=== PATIENT | male | born 1990 | race Caucasian/White ===

== ENCOUNTER 2017-03-26 18:14 | Emergency (ER) | payer OTHER ==
[~2017-03-26] VITALS: Ht 182.8 cm; Wt 68.0 kg
[~2017-03-26 18:14] MED LIST: AMOXICILLIN500 MG PO; CATAFLAM50 MG PO; CEPHALEXIN500 M1 PO; NAPROSYN500 MG PO; NKHM; SEROQUEL25 MG PO; SEROQUEL50 MG PO; ULTRAM50 MG PO; VALTREX500 MG PO; ZOLOFT25 MG PO; Zofran4 MG PO
[2017-03-26 18:18] VITALS: BP 135/93
[2017-03-26] MEDS ORDERED: CYCLOBENZAPRINE10 MG PO (20:47)
[2017-03-26] MEDS ORDERED: NAPROSYN500 MG PO (20:47)
== END 2017-03-26 20:52 | disposition home or self-care (01) ==
LOC: ED 18:14
DX: S39.012A Strain of muscle, fascia and tendon of lower back, initial encounter (principal); X58.XXXA Exposure to other specified factors, initial encounter; Y93.89 Activity, other specified; Y92.89 Other specified places as the place of occurrence of the external cause; Y99.9 Unspecified external cause status

== ENCOUNTER 2017-06-06 13:43 | Emergency (ER) | payer SELFPAY ==
[~2017-06-06] VITALS: Ht 180.3 cm; Wt 70.3 kg
[~2017-06-06 13:43] MED LIST changes: +CYCLOBENZAPRINE10 MG PO
[2017-06-06 13:49] VITALS: BP 117/73
[2017-06-06] MEDS ORDERED: Zofran4 MG PO (14:34)
== END 2017-06-06 14:43 | disposition home or self-care (01) ==
LOC: ED 13:43
DX: K52.9 Noninfective gastroenteritis and colitis, unspecified (principal); F17.200 Nicotine dependence, unspecified, uncomplicated

== ENCOUNTER 2019-04-20 09:27 | Emergency (ER) | payer SELFPAY ==
[~2019-04-20] VITALS: Ht 180.3 cm; Wt 72.6 kg
[2019-04-20 09:33] VITALS: BP 153/86
[2019-04-20] MEDS ORDERED: TESSALON PERLE100 M1 PO (11:37)
[2019-04-20] MEDS ORDERED: FLONASE ALLERG9.9 ML NAS (11:37)
[2019-04-20] MEDS ORDERED: AUGMENTIN 875875 MG PO (11:37)
== END 2019-04-20 11:39 | disposition home or self-care (01) ==
LOC: ED 09:27
DX: J32.9 Chronic sinusitis, unspecified (principal); J02.9 Acute pharyngitis, unspecified

== ENCOUNTER 2022-11-29 11:02 | Emergency (ER) | payer OTHER ==
[~2022-11-29] VITALS: Wt 74.8 kg
[~2022-11-29 11:02] MED LIST changes: +AUGMENTIN 875875 MG PO; +FLONASE ALLERG9.9 ML NAS; +TESSALON PERLE100 M1 PO
[2022-11-29 11:13] VITALS: BP 142/76
== END 2022-11-29 12:48 | disposition home or self-care (01) ==
LOC: ED 11:02
DX: M54.9 Dorsalgia, unspecified (principal); G89.29 Other chronic pain; J45.909 Unspecified asthma, uncomplicated; Z98.890 Other specified postprocedural states

== ENCOUNTER 2023-05-30 10:50 | Emergency (ER) | payer SELFPAY ==
[~2023-05-30] VITALS: Ht 180.3 cm; Wt 72.6 kg
[2023-05-30 10:55] VITALS: BP 153/71
[2023-05-30] MEDS ORDERED: Tdap Vaccine 0.5 ML SYR (Adult Vaccine) IM ONE (11:20)
[2023-05-30] MEDS ORDERED: Lidocaine Hydrochloride 30 ML VIAL SC ONE ×2 (12:10→12:25)
[2023-05-30] MEDS ORDERED: Bacitracin Zinc/Neomycin/Pol 15 GM TUBE T ONE (12:50)
[2023-05-30] MEDS ORDERED: VIBRAMYCIN100 MG PO (12:51)
== END 2023-05-30 13:24 | disposition home or self-care (01) ==
LOC: ED 10:50
DX: S90.451A Superficial foreign body, right great toe, initial encounter (principal); J45.909 Unspecified asthma, uncomplicated; Z98.890 Other specified postprocedural states; X58.XXXA Exposure to other specified factors, initial encounter; Y93.89 Activity, other specified; Y92.89 Other specified places as the place of occurrence of the external cause; Y99.0 Civilian activity done for income or pay